=== PATIENT | male | born 1990 | race Caucasian/White ===

== ENCOUNTER 2016-12-30 14:37 | Emergency (ER) | payer MEDICAID, OTHER ==
[2016-12-30 15:36] VITALS: BP 118/61
--- NOTE | 2016-12-30 17:46 | UC ---
FLU HPI - HPI Summary HPI Summary: ONE WEEK OF NAUSEA AND FATIGUE FOLLOWED BY TWO DAYS OF SORE THROAT BODY ACHES FATIGUE AND FEVER. - History of Current Complaint Chief Complaint: UCGeneralIllness Stated Complaint: BODY ACHES,CONGESTION Time Seen by Provider: 12/30/16 16:34 Hx Obtained From: Patient, Family/[employer] Onset/Duration: Gradual Onset, Lasting Days, Still Present Severity Currently: Moderate Severity Initially: Moderate Pain Intensity: 9 Pain Scale Used: 0-10 Numeric Associated Signs & Symptoms: Positive: Fever, Myalgia, Sore Throat Related Hx: Possible Flu/Infectious Exposure - Allergy/Home Medications Allergies/Adverse Reactions: Allergies Allergy/AdvReac Type Severity Reaction Status Date / Time No Known Allergies Allergy Verified 12/30/16 17:33 Home Medications: Home Medications NK [No Home Medications Reported] 12/30/16 [History Confirmed 12/30/16] PMH/Surg Hx/FS Hx/Imm Hx Previously Healthy: Yes - Surgical History Surgical History: Yes Surgery Procedure, Year, and Place: LEFT ARM FX REPAIR - Family History Known Family History: Negative: Respiratory Disease - Social History Occupation: Employed Full-time Lives: With Family Alcohol Use: Rare Substance Use Type: None Substance Use Comment - Amount & Last Used: 5-6 cups coffee today Smoking Status (MU): Heavy Every Day Tobacco Smoker Type: Cigarettes Amount Used/How Often: 1/2 PPD Household Exposure Type: Cigarettes Cessation Counseling: Counseled 3+Min - 10 Min Review of Systems Constitutional: Fever, Chills Skin: Negative Eyes: Negative ENT: Sore Throat Respiratory: Cough Cardiovascular: Negative Gastrointestinal: Negative Genitourinary: Negative Motor: Negative Neurovascular: Negative Musculoskeletal: Negative, Myalgia Neurological: Negative Psychological: Negative All Other Systems Reviewed And Are Negative: Yes Physical Exam Triage Information Reviewed: Yes Appearance: Well-Appearing, No Pain Distress, Well-Nourished Vital Signs: Initial Vital Signs Temp 100.5 F 12/30/16 15:30 Pulse 73 12/30/16 15:30 Resp 16 12/30/16 15:30 BP 118/61 12/30/16 15:30 Pulse Ox 100 12/30/16 15:30 Vital Signs Reviewed: Yes Eye Exam: Normal Eyes: Positive: Conjunctiva Clear ENT: Positive: Hearing grossly normal, Pharyngeal erythema, TMs normal, TM bulging Dental Exam: Normal Neck exam: Normal Neck: Positive: Supple, Nontender Respiratory Exam: Normal Respiratory: Positive: Chest non-tender, Lungs clear, Normal breath sounds, No respiratory distress, No accessory muscle use Cardiovascular Exam: Normal Cardiovascular: Positive: RRR, No Murmur, Pulses Normal, Brisk Capillary Refill Abdominal Exam: Normal Abdomen Description: Positive: Nontender, No Organomegaly Musculoskeletal Exam: Normal Musculoskeletal: Positive: Strength Intact Neurological Exam: Normal Psychological Exam: Normal Psychological: Positive: Normal Response To Family Skin Exam: Normal Flu Course/Dx - Differential Dx/Diagnosis Differential Diagnosis/HQI/PQRI: Bronchitis, Influenza, Upper Respiratory Infection Provider Diagnoses: INFLUENZA Discharge - Discharge Plan Condition: Stable Disposition: HOME Patient Education Materials: How to Stop Smoking (ED), Influenza (ED) Forms: *Work Release Referrals: [facility] [Outside] No Primary Care Phys,NOPCP [Primary Care Provider] -
== END 2016-12-30 17:14 | disposition home or self-care (01) ==
LOC: UCCORT 14:37
DX: J11.1 Influenza due to unidentified influenza virus with other respiratory manifestations (principal); F17.210 Nicotine dependence, cigarettes, uncomplicated
CPT/HCPCS: 99211; G0463

== ENCOUNTER 2018-06-30 11:55 | Emergency (ER) | payer OTHER ==
[2018-06-30 12:32] VITALS: BP 120/79
--- NOTE | 2018-06-30 12:56 | UC ---
Abdominal Pain Male HPI - HPI Summary HPI Summary: Pt presents with c/o sudden onset of nausea, vomiting and abdominal pain. Pt has concern about food poisoning because he ate day old pizza, that was unrefrigerated and had sudden onset of nausea and vomiting 12 hours after. Pt also reports that he has not had BM since 06/28/18. Pt is passing flatus and states abdominal pain has improved. - History of Current Complaint Chief Complaint: UCGI Stated Complaint: STOMACH COMPLAINT Time Seen by Provider: 06/30/18 12:37 Hx Obtained From: Patient Onset/Duration: Sudden Onset, Lasting Hours Timing: Intermittent Episodes Lasting: Severity Initially: Moderate Severity Currently: Mild Pain Intensity: 3 Location: Diffuse Radiates: No Character: Colicy Aggravating Factor(s): Food Alleviating Factor(s): Rest Associated Signs And Symptoms: Positive: Decreased Appetite, Nausea, Vomiting - Risk Factors Testicular Torsion: Negative Cardiac Risk Factors: Negative - Allergies/Home Medications Allergies/Adverse Reactions: Allergies Allergy/AdvReac Type Severity Reaction Status Date / Time No Known Allergies Allergy Verified 06/30/18 12:26 Home Medications: Home Medications FLUoxetine CAP* [Prozac CAP*] 40 mg PO BEDTIME 06/30/18 [History Confirmed 06/30] PMH/Surg Hx/FS Hx/Imm Hx Previously Healthy: Yes - Surgical History Surgical History: Yes Surgery Procedure, Year, and Place: LEFT ARM FX REPAIR - Family History Known Family History: Negative: Respiratory Disease - Social History Occupation: Employed Full-time Lives: With Family Alcohol Use: Occasionally Substance Use Type: None Substance Use Comment - Amount & Last Used: 5-6 cups coffee today Smoking Status (MU): Current Some Day Smoker Type: Cigarettes, Smokeless Tobacco Amount Used/How Often: occasional Household Exposure Type: Cigarettes Review of Systems Constitutional: Negative Skin: Negative Eyes: Negative ENT: Negative Respiratory: Negative Cardiovascular: Negative Gastrointestinal: Abdominal Pain, Vomiting, Nausea Genitourinary: Negative Motor: Negative Neurovascular: Negative Musculoskeletal: Negative Neurological: Negative Psychological: Negative Is Patient Immunocompromised?: No All Other Systems Reviewed And Are Negative: Yes Physical Exam Triage Information Reviewed: Yes Appearance: Well-Appearing Vital Signs: Initial Vital Signs Temp 98.7 F 06/30/18 12:27 Pulse 62 06/30/18 12:27 Resp 15 06/30/18 12:27 BP 120/79 06/30/18 12:27 Pulse Ox 100 06/30/18 12:27 Vital Signs Reviewed: Yes Eye Exam: Normal ENT Exam: Normal Dental Exam: Normal Neck exam: Normal Respiratory Exam: Normal Cardiovascular Exam: Normal Abdominal Exam: Normal Abdomen Description: Positive: Nontender Bowel Sounds: Positive: Present Musculoskeletal Exam: Normal Neurological Exam: Normal Psychological Exam: Normal Skin Exam: Normal Abd Pain Male Course/Dx - Differential Dx/Clinical Impression Differential Diagnosis/HQI/PQRI: Constipation Provider Diagnoses: constipation. acute nausea and vomiting Discharge - Sign-Out/Discharge Documenting (check all that apply): Patient Departure - Discharge Plan Condition: Stable Disposition: HOME Prescriptions: Ondansetron HCl [Zofran] 4 mg PO Q8H PRN #12 tablet PRN Reason: Nausea Patient Education Materials: Constipation (ED), Acute Nausea and Vomiting (ED) Forms: *Work Release Referrals: Cheyanne JOHNSTON,Sushant Sandhu [Primary Care Provider] - If Needed Additional Instructions: Per institutional requirements, I have reviewed the chart, however, I was not consulted specifically or made aware of this patient by the above midlevel provider. I did not personally evaluate, interact with , or disposition this patie - Billing Disposition and Condition Condition: STABLE Disposition: Home
== END 2018-06-30 13:07 | disposition home or self-care (01) ==
LOC: UCCORT 11:55
DX: K59.00 Constipation, unspecified (principal); R11.2 Nausea with vomiting, unspecified; F17.210 Nicotine dependence, cigarettes, uncomplicated; R10.9 Unspecified abdominal pain; R14.3 Flatulence
CPT/HCPCS: 99212; G0463

== ENCOUNTER 2018-09-17 13:31 | Emergency (ER) | payer BC, OTHER ==
[2018-09-17 14:51] VITALS: BP 128/74
--- NOTE | 2018-09-17 16:16 | UC ---
Throat Pain/Nasal [place] HPI - HPI Summary HPI Summary: 28-year-old male presents with 1 month history of upper respiratory symptoms including nasal congestion, postnasal drip, sinus pressure, and ear fullness. He states that over the last 3-4 days his symptoms have worsened and he has started developing a productive cough for green sputum. Associated with chills. Denies fever, sore throat, chest pain, shortness of breath, abdominal pain, nausea, or vomiting. He has a one third of a pack-a-day smoker. - History of Current Complaint Chief Complaint: UCGeneralIllness Stated Complaint: COUGH Time Seen by Provider: 09/17/18 15:55 Hx Obtained From: Patient Onset/Duration: Gradual Onset, Lasting Weeks - 4 Pain Intensity: 0 Cough: Productive Associated Signs & Symptoms: Positive: Sinus Discomfort, Nasal Discharge. Negative: Dysphagia, Wheezing, Hoarseness, Fever, Vomiting, Rash - Allergies/Home Medications Allergies/Adverse Reactions: Allergies Allergy/AdvReac Type Severity Reaction Status Date / Time No Known Allergies Allergy Verified 09/17/18 14:51 PMH/Surg Hx/FS Hx/Imm Hx Previously Healthy: Yes - Denies significant PMH - Surgical History Surgical History: Yes Surgery Procedure, Year, and Place: LEFT ARM FX REPAIR - Family History Family History: Noncontributory - Social History Occupation: Employed Full-time Lives: With Family Alcohol Use: Occasionally Substance Use Type: None Substance Use Comment - Amount & Last Used: 5-6 cups coffee today Smoking Status (MU): Current Some Day Smoker Type: Cigarettes, Smokeless Tobacco Amount Used/How Often: occasional Household Exposure Type: Cigarettes Review of Systems Constitutional: Negative Skin: Negative Eyes: Negative ENT: Sinus Pain/Tenderness, Other - See HPI Respiratory: Negative Cardiovascular: Negative Gastrointestinal: Negative Is Patient Immunocompromised?: No All Other Systems Reviewed And Are Negative: Yes Physical Exam Triage Information Reviewed: Yes Appearance: Well-Appearing, No Pain Distress, Well-Nourished Vital Signs: Initial Vital Signs Temp 97.7 F 09/17/18 14:46 Pulse 61 09/17/18 14:46 Resp 18 09/17/18 14:46 BP 128/74 09/17/18 14:46 Pulse Ox 100 09/17/18 14:46 Vital Signs Reviewed: Yes Eyes: Positive: Conjunctiva Clear. Negative: Discharge ENT: Positive: Pharyngeal erythema - Mild with cobblestoning, Nasal congestion, TMs normal, Sinus tenderness - maxillary, Uvula midline. Negative: Nasal drainage, Tonsillar swelling, Tonsillar exudate Neck: Positive: Supple, Nontender, No Lymphadenopathy Respiratory: Positive: Lungs clear, Normal breath sounds, No respiratory distress Cardiovascular: Positive: RRR, No Murmur Neurological: Positive: Alert Skin Exam: Normal Throat Pain/Nasal Course/Dx - Course Course Of Treatment: 28 year old male with 1 month history of URI/sinusitis symptoms that have progressively worsened over that past several days. His exam revealed nasal congestion, maxillary sinus tenderness, and mild pharyngeal erythema. Considering the duration of his symptoms will treat for an acute sinus infection with 10 day course of Augmentin. He is to follow up with PCP if symptoms persist. Warning symptoms reviewed. Verbalizes understanding and agrees with POC. - Differential Dx/Diagnosis Differential Diagnosis/HQI/PQRI: Sinusitis, URI, Other - Bronchitis Provider Diagnoses: Upper respiratory infection Discharge - Sign-Out/Discharge Documenting (check all that apply): Patient Departure All imaging exams completed and their final reports reviewed: No Studies - Discharge Plan Condition: Stable Disposition: HOME Prescriptions: Amoxicillin/Clavulanate TAB* [Augmentin TAB 875*] 875 mg PO BID #20 tab Patient Education Materials: Upper Respiratory Infection (ED) Forms: *Work Release Referrals: Sushant Dumont [Primary Care Provider] - 7 Days (If no improvement in symptoms.) Additional Instructions: Considering the duration and worsening of your symptoms we will starch on an antibiotic for your upper respiratory infection. Start Augmentin 1 tablet twice a day for 10 days. Be sure to take this with foods to avoid upset stomach. Its important that you finish the entire 10 days even if you're feeling better. Continue using the fluticasone (Flonase) nasal spray 2 sprays each nostril once daily. I would recommend having the use of a saline rinse kit such as Netti Pot or NeilMed at least twice a day to help thin secretions and promote drainage. Use an [id number] decongestant such as Sudafed according to directions for nasal congestion or sinus pressure. Follow-up with your primary care provider in 7 days if her symptoms persist. Seek immediate medical attention in the emergency room if you develop a persistent fever greater than 100.5 F, have chest pain, shortness of breath, or any worsening of symptoms. - Billing Disposition and Condition Condition: STABLE Disposition: Home - Attestation Statements Provider Attestation: Per institutional requirements, I have reviewed the chart, however, I was not consulted specifically or made aware of this patient by the midlevel provider. I did not personally evaluate, interact with , or disposition this patient.
== END 2018-09-17 16:21 | disposition home or self-care (01) ==
LOC: UCCORT 13:31
DX: J06.9 Acute upper respiratory infection, unspecified (principal); F17.210 Nicotine dependence, cigarettes, uncomplicated
CPT/HCPCS: 99212; G0463